=== PATIENT | male | born 1970 | race Caucasian/White ===

== ENCOUNTER 2018-02-09 16:35 | Outpatient (CLI) | payer OTHER ==
[2018-02-10 11:26] LABS: CALCIUM 9.5 mg/dL (8.5-10.3); CARBON DIOXIDE - CO2 27 mmol/L (21-32); CHLORIDE 91 mmol/L (101-111); GLUCOSE 113 mg/dL (70-100); SODIUM 129 mmol/L (135-145)
[2018-02-10 11:31] LABS: BILIRUBIN,URINE NEGATIVE (NEGATIVE); CLARITY,URINE CLEAR (CLEAR); GLUCOSE, URINE (UA) NEGATIVE (NEGATIVE); KETONES,URINE (UA) NEGATIVE (NEGATIVE); LEUKOCYTE ESTERASE, URINE NEGATIVE (NEGATIVE); NITRITE,URINE NEGATIVE (NEGATIVE); OCCULT BLOOD,URINE NEGATIVE (NEGATIVE); PROTEIN,URINE TRACE mg/dL (NEGATIVE); UROBILINOGEN,URINE 0.2 (NORMAL) E.U./dL (NORMAL)
[2018-02-10 11:43] LABS: BUN - BLOOD UREA NITROGEN 21 mg/dL (6-20); CHOL/HDL RATIO 5.3 (<5.0); CHOLESTEROL 201 mg/dL; CREATININE,URINE 137.9 mg/dL; GFR - MDRD 79 (>89); HDL CHOLESTEROL 38 mg/dL; LDL CHOLESTEROL,CALCULATED 141 mg/dL; LDL/HDL RATIO 3.7 (<3.6); MICROALBUM/CREATININE RATIO,UR 73.2 ug/mg (<30.0); MICROALBUMIN,URINE 10.1 mg/dL (0-300.0); VLDL CHOLESTEROL 22 mg/dL
[2018-02-10 11:49] LABS: HB2 TOTAL 16.7 g/dL; HEMOGLOBIN A1C 0.91 g/dL; HEMOGLOBIN A1C % 7.1 % (4.6-6.2)
== END 2018-02-09 16:36 | disposition home or self-care (01) ==
LOC: LAB.F 16:35
PROVIDERS: ATTEND Internal Medicine
DX: Z00.00 Encounter for general adult medical examination without abnormal findings (principal); R73.01 Impaired fasting glucose; F10.10 Alcohol abuse, uncomplicated; G47.30 Sleep apnea, unspecified; I10 Essential (primary) hypertension; Z13.6 Encounter for screening for cardiovascular disorders; R80.9 Proteinuria, unspecified
CPT/HCPCS: 36415; 80048; 80061; 81003; 82043; 82570; 83036; 83721

== ENCOUNTER 2018-03-09 14:49 | Outpatient (CLI) | payer OTHER | END 2018-03-09 14:50 | disposition home or self-care (01) | LOC: SC 14:49 | PROVIDERS: ATTEND Internal Medicine Pulmonary Disease | DX: R53.83 Other fatigue (principal); G47.8 Other sleep disorders; R06.83 Snoring | CPT/HCPCS: 99203; 99212 ==

== ENCOUNTER 2018-05-15 19:39 | Outpatient (CLI) | payer OTHER | END 2018-05-15 19:40 | disposition home or self-care (01) | LOC: SC 19:39 | PROVIDERS: ATTEND Internal Medicine Pulmonary Disease | DX: G47.33 Obstructive sleep apnea (adult) (pediatric) (principal); G47.61 Periodic limb movement disorder | CPT/HCPCS: 95810 ==

== ENCOUNTER 2018-06-01 08:35 | Outpatient (CLI) | payer OTHER | END 2018-06-01 08:36 | disposition home or self-care (01) | LOC: SC 08:35 | PROVIDERS: ATTEND Nurse Practitioner Family | DX: G47.33 Obstructive sleep apnea (adult) (pediatric) (principal); G47.61 Periodic limb movement disorder | CPT/HCPCS: 99212; 99214 ==

== ENCOUNTER 2018-07-12 16:09 | Outpatient (CLI) | payer OTHER | END 2018-07-12 16:10 | disposition home or self-care (01) | LOC: SC 16:09 | PROVIDERS: ATTEND Nurse Practitioner Family | DX: G47.33 Obstructive sleep apnea (adult) (pediatric) (principal); R03.0 Elevated blood-pressure reading, without diagnosis of hypertension | CPT/HCPCS: 99212; 99214 ==

== ENCOUNTER 2018-09-01 16:09 | Outpatient (CLI) | payer OTHER | END 2018-09-01 16:10 | disposition home or self-care (01) | LOC: SC 16:09 | PROVIDERS: ATTEND Nurse Practitioner Family | DX: G47.33 Obstructive sleep apnea (adult) (pediatric) (principal) | CPT/HCPCS: 99212; 99214 ==

== ENCOUNTER 2018-10-06 08:15 | Outpatient (CLI) | payer OTHER | END 2018-10-06 08:16 | disposition home or self-care (01) | LOC: SC 08:15 | PROVIDERS: ATTEND Nurse Practitioner Family | DX: G47.33 Obstructive sleep apnea (adult) (pediatric) (principal) | CPT/HCPCS: 99212; 99214 ==

== ENCOUNTER 2019-01-05 15:04 | Outpatient (CLI) | payer OTHER | END 2019-01-05 15:05 | disposition home or self-care (01) | LOC: SC 15:04 | PROVIDERS: ATTEND Nurse Practitioner Family | DX: G47.33 Obstructive sleep apnea (adult) (pediatric) (principal); R03.0 Elevated blood-pressure reading, without diagnosis of hypertension | CPT/HCPCS: 99212; 99214 ==

== ENCOUNTER 2019-08-09 15:02 | Outpatient (CLI) | payer OTHER ==
--- NOTE | 2019-08-09 15:33 | SLEEP CARE CONSULTATION ---
Information from patient questionnaire entered by Becky Calix. I have reviewed and concur with the information entered by Becky Calix. This document represents the service I personally performed and the decisions made by me, Tom Frazier MD, [facility]. History of Present Illness Previous diagnosis: Moderate, Obstructive Sleep Apnea-Hypopnea Syndrome AHI: 28.4 Reason for follow up: six month Equipment type: CPAP Equipment obtained from: [employer] Mask style: Nasal pillows Prior sleep studies: Yes HPI additional information: HPI: Mr. Altman returned today for follow up of nasal CPAP therapy. He was diagnosed to have moderate obstructive sleep apnea-hypopnea syndrome. The patient wears a Respironics DreamWear nasal pillows (he tried the nasal cushion but it slipped off). [employer] is his durable medical supplier. He reports using the device nightly and all through the night. The compliance report shows usage in 170 nights out of the past 180 nights, averaging 7.5 hours a night. The > 4 hour compliance rate for the past 180 days is 85%. He complained of no particular problem with the device such as soreness on the face, dry nose, epistaxis, nasal congestion or headache. He thinks that the pressure of 8 12 cmH2O is comfortable. On the CPAP therapy he notices improvement in his sleep quality, and that he wakes up feeling fresher in the morning and more awake/alert during the day. [place] Sleepiness Scale score is 2. His notices no snore at all. The average residual AHI is 0.5; and average time in large leak per day is 3.9. The 90th percentile pressure is 11.5 cmH2O. CPAP Compliance Data - Data Reviewed with Patient Average duration of nightly device use: 7h 7m Compliance rate %: 85 Current pressure setting (cmH2O): 8-12 Subjective Current pressure setting perceived as: comfortable Initial [place] Sleepiness Scale score: 2 Current [place] Sleepiness Scale score: 2 Allergies and Home Medications Drug allergies reviewed: Yes Home medication list reviewed: Yes (lisinopril, amlodipine, atorvastatin, Nasocort, and aspirin) Review of Systems Review of systems same as previous: Yes Physical Exam Height: 5 ft 9 in Weight: 241 lb Weight change since last visit: 0 Body Mass Index: 35.6 BMI Classification: Obese Impression and Plan IMPRESSION: 1. Obstructive Sleep Apnea-Hypopnea Syndrome, moderate, with the patient doing well on nasal CPAP therapy. He has excellent compliance and significant clinical improvement. The current pressure appears effective and comfortable. His mask fits well. Overall, he is very satisfied with treatment and plans to continue with it long-term. No adjustment is necessary today. PLAN: 1. Continue with autoCPAP set at 8 - 12 cmH2O. 2. Try to lose more weight 3. Try ResMed N30i mask and P30i nasal pillows. 4. Return in one year for follow up or earlier if there is any problem with the treatment. I spent 100% of this visit face to face with the patient with greater than 50% of this was spent time counseling the patient and coordination of care.
== END 2019-08-09 15:03 | disposition home or self-care (01) ==
LOC: SC 15:02
PROVIDERS: ATTEND Internal Medicine Pulmonary Disease
DX: G47.33 Obstructive sleep apnea (adult) (pediatric) (principal); E66.9 Obesity, unspecified; Z68.35 Body mass index [BMI] 35.0-35.9, adult
CPT/HCPCS: 99212; 99213

== ENCOUNTER 2023-08-09 20:19 | Emergency (ER) | payer OTHER ==
--- NOTE | 2023-08-09 20:50 | ED Physician Documentation ---
History of Present Illness - Stated complaint Stated Complaint: SOA,HIGH HR,ANXIETY - Chief complaint Chief Complaint: General - History obtained from History obtained from: Patient - History of Present Illness Timing: How many days ago (3) - Additonal information Additional information: 53-year-old Kaz Parish presents to the emergency department this evening with a 3-day history of PND and orthopnea as well as some anxiety and rapid heart rate. Kaz tells me that he has a prior history of diabetes but is not treated and hypertension that is again not treated. He tells me that he drinks heavily both whiskey and beer consuming up to 1/5 a day of whiskey plus beer and he works construction working hard every day. He states that over the past 2 to 3 months he has had increasing exertional dyspnea. He does use CPAP at night and he indicates that last night he had to sleep sitting upright in an easy chair.. He presents to the emergency department. This evening with the complaints that he was unable to sleep last night because he was unable to lay down without being short of breath. Review of Systems Constitutional: denies: Fever, Chills, Myalgias Eyes: denies: Decreased vision Ears: denies: Ear pain Nose: denies: Rhinorrhea / runny nose, Congestion Throat: reports: Oral lesions / sores (develops gelatinous blood around the gums at night.). denies: Sore throat Cardiac: reports: Pedal edema. denies: Chest pain / pressure, Palpitations Respiratory: reports: Dyspnea, Cough GI: denies: Abdominal Pain, Nausea, Vomiting, Constipation, Diarrhea : denies: Dysuria, Frequency Skin: denies: Rash Musculoskeletal: denies: Neck pain, Back pain, Extremity pain Neurologic: denies: Generalized weakness, Focal weakness, Numbness PD PAST MEDICAL HISTORY - Past Medical History Past Medical History: Yes Cardiovascular: Hypertension, High cholesterol - Past Surgical History Past Surgical History: No - Present Medications Home Medications: Ambulatory Orders Medication Instructions Recorded Confirmed chlordiazePOXIDE [Librium] 25 mg PO Q6H #15 cap 08/10/23 - Allergies Allergies/Adverse Reactions: Allergies Allergy/AdvReac Type Severity Reaction Status Date / Time No Known Drug Allergies Allergy Verified 08/09/23 20:23 - Social History Does the pt smoke?: No Smoking Status: Never smoker Does the pt drink ETOH?: No Does the pt have substance abuse?: No - Immunizations Immunizations are current?: No Immunizations: TDAP >10years/unknown - POLST Patient has POLST: No PD ED PE NORMAL - Vitals Vital signs reviewed: Yes (Tachycardic and hypertensive with wide pulse pressure) - General General: Alert and oriented X 3, No acute distress, Well developed/nourished - HEENT HEENT: Atraumatic, PERRL, EOMI - Neck Neck: Supple, no meningeal sign, No bony TTP - Cardiac Cardiac: No murmur, Other (Tachycardic) - Respiratory Respiratory: No respiratory distress, Other (Coarse breath sounds symmetrically throughout.) - Abdomen Abdomen: Soft, Non tender, Other (There are multiple small bruises to the lower abdomen these are explained by the patient is putting a piece of plywood up against his abdomen to push it up to the roof) - Back Back: No CVA TTP, No spinal TTP - Derm Derm: Normal color, No rash - Extremities Extremities: No deformity, Other (Pitting edema bilaterally 1+) - Neuro Neuro: Alert and oriented X 3, buffing wheel former automatic 2-12 intact, No motor deficit, No sensory deficit, Normal speech Eye Opening: Spontaneous Motor: Obeys Commands Verbal: Oriented GCS Score: 15 - Psych Psych: Normal mood, Normal affect Results - Vitals Vitals: Vital Signs - 24 hr 08/09/23 08/09/23 08/09/23 20:23 22:42 22:51 Temperature 36.6 C 36.9 C 36.9 C Heart Rate 118 H 105 H Heart Rate [ 105 H Monitoring electrodes] Respiratory 16 20 20 Rate Blood Pressure 180/65 H 159/64 H Blood Pressure 159/64 H [Left] O2 Saturation 100 96 94 08/09/23 08/09/23 08/10/23 23:06 23:30 00:00 Temperature 36.9 C Heart Rate 104 H 108 H Heart Rate [ 104 H Monitoring electrodes] Respiratory 16 16 17 Rate Blood Pressure 142/65 H 177/82 H Blood Pressure 164/66 H [Left] O2 Saturation 98 97 96 08/10/23 08/10/23 08/10/23 01:00 01:03 01:04 Temperature 37.1 C 37.1 C Heart Rate 100 Heart Rate [ 98 98 Monitoring electrodes] Respiratory 17 16 16 Rate Blood Pressure 144/75 H Blood Pressure 144/75 H 144/75 H [Left] O2 Saturation 96 99 08/10/23 08/10/23 08/10/23 01:24 01:39 02:00 Temperature 37.1 C 37 C Heart Rate 100 Heart Rate [ 100 99 Monitoring electrodes] Respiratory 17 15 16 Rate Blood Pressure 179/69 H Blood Pressure 150/77 H 152/74 H [Left] O2 Saturation 98 100 95 08/10/23 08/10/23 03:00 03:16 Temperature 37.1 C Heart Rate 100 Heart Rate [ 98 Monitoring electrodes] Respiratory 17 14 Rate Blood Pressure 155/74 H Blood Pressure 162/83 H [Left] O2 Saturation 95 97 Oxygen O2 Source Room air - EKG (time done) 2053 EKG releavant findings:: EKG personally interpreted by author of this note. Relevant findings are: Rate: Rate (enter#) (110) Rhythm: Sinus tachycardia Ischemia: Non specific changes (bordeline repolarization abnormality) Compare to prior EKG: Old EKG unavailable Computer interpretation: Agree with computer - Labs Labs: Laboratory Tests 08/09/23 08/09/23 08/09/23 21:02 21:02 21:02 WBC 6.7 RBC 2.37 L Hgb 6.0 L* Hct 19.9 L* MCV 84.0 MCH 25.3 L MCHC 30.2 L RDW 16.4 H Plt Count 88 L MPV 10.1 Neut # (Auto) 4.3 Lymph # (Auto) 1.8 Power # (Auto) 0.5 Eos # (Auto) 0.1 Baso # (Auto) 0.1 Absolute Nucleated RBC 0.00 Nucleated RBC % 0.0 Sodium 136 Potassium 3.6 Chloride 103 Carbon Dioxide 23 Anion Gap 10.0 BUN 11 Creatinine 0.7 Estimated GFR (MDRD) 117 Glucose 160 H Calcium 8.6 Total Bilirubin 1.4 H AST 138 H ALT 32 Alkaline Phosphatase 177 H Troponin I High Sens 10.8 B-Natriuretic Peptide 310 H Total Protein 6.9 Albumin 3.2 Globulin 3.7 Albumin/Globulin Ratio 0.9 L Lipase 288 H Urine Color Urine Clarity Urine pH Ur Specific [place] Urine Protein Urine Glucose (UA) Urine Ketones Urine Occult Blood Urine Nitrite Urine Bilirubin Urine Urobilinogen Ur Leukocyte Esterase Urine RBC Urine WBC Ur Squamous Epith Cells Urine Bacteria Ur Microscopic Review Urine Culture Comments Ethyl Alcohol 209.7 Blood Type Blood Type Recheck Antibody Screen Crossmatch IS Only 08/09/23 08/09/23 08/09/23 21:02 21:35 21:40 WBC RBC Hgb Hct MCV MCH MCHC RDW Plt Count MPV Neut # (Auto) Lymph # (Auto) Power # (Auto) Eos # (Auto) Baso # (Auto) Absolute Nucleated RBC Nucleated RBC % Sodium Potassium Chloride Carbon Dioxide Anion Gap BUN Creatinine Estimated GFR (MDRD) Glucose Calcium Total Bilirubin AST ALT Alkaline Phosphatase Troponin I High Sens B-Natriuretic Peptide Total Protein Albumin Globulin Albumin/Globulin Ratio Lipase Urine Color DARK YELLOW Urine Clarity CLEAR Urine pH 6.5 Ur Specific [place] 1.020 Urine Protein 30 H Urine Glucose (UA) 250 H Urine Ketones TRACE Urine Occult Blood NEGATIVE Urine Nitrite NEGATIVE Urine Bilirubin SMALL H Urine Urobilinogen >=8.0 H Ur Leukocyte Esterase NEGATIVE Urine RBC 0-5 Urine WBC 0-3 Ur Squamous Epith Cells RARE Squamous Urine Bacteria None Seen Ur Microscopic Review INDICATED Urine Culture Comments NOT INDICATED Ethyl Alcohol Blood Type B POSITIVE Blood Type Recheck B POSITIVE Antibody Screen NEGATIVE Crossmatch IS Only See Detail 08/10/23 04:20 WBC RBC Hgb 7.5 L Hct 23.5 L MCV MCH MCHC RDW Plt Count MPV Neut # (Auto) Lymph # (Auto) Power # (Auto) Eos # (Auto) Baso # (Auto) Absolute Nucleated RBC Nucleated RBC % Sodium Potassium Chloride Carbon Dioxide Anion Gap BUN Creatinine Estimated GFR (MDRD) Glucose Calcium Total Bilirubin AST ALT Alkaline Phosphatase Troponin I High Sens B-Natriuretic Peptide Total Protein Albumin Globulin Albumin/Globulin Ratio Lipase Urine Color Urine Clarity Urine pH Ur Specific [place] Urine Protein Urine Glucose (UA) Urine Ketones Urine Occult Blood Urine Nitrite Urine Bilirubin Urine Urobilinogen Ur Leukocyte Esterase Urine RBC Urine WBC Ur Squamous Epith Cells Urine Bacteria Ur Microscopic Review Urine Culture Comments Ethyl Alcohol Blood Type Blood Type Recheck Antibody Screen Crossmatch IS Only - Rads (name of study) chest Relevant Findings:: Prelim report reviewed (Impression: No acute cardiopulmonary process.), EMP independent interpretation of test Procedures - IVC sono (time) 2029 Bedside IVC sono: IVC measures (cm) (1.12), Dehydration (est 1 liter deficit) PD Medical Decision Making - ED course Complexity details: reviewed old records, reviewed results, re-evaluated patient, considered differential, d/w patient Reviewed Lab Results: We reviewed a complete blood count which showed a normal white blood cell count of 6.7 and a critically low hemoglobin of 6.0 and a critically low hematocrit of 19.9. We have a prior hemoglobin of 15 on the patient from 10 years ago. Platelet count is also depressed at 88,000. Chemistries show normal electrolytes normal kidney function glucose is elevated at 160 total bilirubin elevated at 1.4 AST elevated at 138 and alkaline phosphatase elevated at 177. A BNP is elevated at 310 and lipase elevated at 288. The patient's blood alcohol is 209.7. I interpreted this set of laboratory test to indicate the patient has significant issues with alcohol including changes in liver function and blood counts. His blood counts are now critically low and I suspect the symptoms the patient is presenting with are related to his low blood counts. I believe the low blood counts are related to the direct effects of alcohol on the patient's bone marrow. ED course: Kaz Altman presents to the emergency department after a 3-year lapse of not seeing his physician. He had previously been treated for hypertension and diabetes. Today he has critically low blood counts and a transfusion is performed. He received 2 units of packed red blood cells. He feels much improved. I suspect most of Mr. Parish's problems are related to his excessive consumption of alcohol and he relates that he has been drinking since he was 6 years old has had lots of experience with having to go through withdrawal.When I asked him more specifics about this it appears he has not been treated previously with Librium or other medications for withdrawal and he has suffered through this. He did not detail any long periods of sobriety. He has not been in treatment previously. 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 These low blood counts appear to be related to the direct effects of alcohol on your bone marrow. The recommendation is to discontinue the use of alcohol entirely and I have provided some librium to help you get through the withdrawal. A follow-up with a primary care doctor is imperative and I have given you the name of Dr. Jansen in [place]. Forms: Activity restrictions
[2023-08-09 21:13] LABS: BASOPHILS # (AUTO) 0.1 10^3/uL (0.0-0.1); BASOPHILS % (AUTO) 1.2 %; EOSINOPHILS # (AUTO) 0.1 10^3/uL (0.0-0.7); EOSINOPHILS % (AUTO) 0.7 %; LYMPHOCYTES # (AUTO) 1.8 10^3/uL (1.5-3.5); LYMPHOCYTES % (AUTO) 26.2 %; MEAN CORPUSCULAR HEMOGLOBIN 25.3 pg (27.0-31.0); MEAN CORPUSCULAR HGB CONC 30.2 g/dL (32.0-36.0); MEAN PLATELET VOLUME 10.1 fL (7.4-11.4); MONOCYTES # (AUTO) 0.5 10^3/uL (0.0-1.0); MONOCYTES % (AUTO) 7.3 %; NEUTROPHILS # (AUTO) 4.3 10^3/uL (1.5-6.6); NEUTROPHILS % (AUTO) 64.2 %; PLT - PLATELET COUNT 88 10^3/uL (130-450); RED BLOOD COUNT 2.37 10^6/uL (4.70-6.10); RED CELL DISTRIBUTION WIDTH 16.4 % (12.0-15.0); WHITE BLOOD COUNT 6.7 x10^3/uL (4.8-10.8)
[2023-08-09 21:17] LABS: HCT - HEMATOCRIT 19.9 % (42.0-52.0)
[2023-08-09 21:28] LABS: ALBUMIN 3.2 g/dL (3.2-5.5); ALBUMIN/GLOBULIN RATIO 0.9 (1.0-2.2); BILIRUBIN,TOTAL 1.4 mg/dL (0.2-1.0); CALCIUM 8.6 mg/dL (8.5-10.3); CREATININE 0.7 mg/dL (0.6-1.3); ETOH - ETHANOL 209.7 mg/dL; POTASSIUM 3.6 mmol/L (3.5-4.5); TOTAL PROTEIN 6.9 g/dL (6.4-8.9)
[2023-08-09 21:30] LABS: TROPONIN I HIGH SENSITIVITY 10.8 ng/L (2.3-19.7)
--- NOTE | 2023-08-09 21:41 | XRAY Report ---
PROCEDURE: Chest 1V INDICATIONS: soa TECHNIQUE: One view of the chest was acquired. COMPARISON: None. FINDINGS: Surgical changes and devices: None. Lungs and pleura: No pleural effusions or pneumothorax. Lungs are clear. Mediastinum: Mediastinal contours appear normal. Heart size is normal. Bones and chest wall: No suspicious bony lesions. Overlying soft tissues appear unremarkable. IMPRESSION: No acute cardiopulmonary process. Reviewed by: David Santos MD on 08/09/2023 9:40 PM PST Approved by: David Santos MD on 08/09/2023 9:40 PM [facility] Station ID: [id number]
[2023-08-09 21:56] LABS: BILIRUBIN,URINE SMALL (NEGATIVE); GLUCOSE, URINE (UA) 250 mg/dL (NEGATIVE); KETONES,URINE (UA) TRACE mg/dL (NEGATIVE); LEUKOCYTE ESTERASE, URINE NEGATIVE (NEGATIVE); NITRITE,URINE NEGATIVE (NEGATIVE); OCCULT BLOOD,URINE NEGATIVE (NEGATIVE); PH,URINE 6.5 PH (5.0-7.5); PROTEIN,URINE 30 mg/dL (NEGATIVE); UROBILINOGEN,URINE >=8.0 E.U./dL (NORMAL)
[2023-08-09 21:57] LABS: CLARITY,URINE CLEAR (CLEAR)
[2023-08-09 22:09] LABS: BACTERIA,URINE None Seen /HPF (None Seen); RBC,URINE 0-5 /HPF (0-5); SQUAMOUS EPITHELIAL CELL,UR RARE Squamous (<= Few); WBC,URINE 0-3 /HPF (0-3)
[2023-08-10 04:26] LABS: HCT - HEMATOCRIT 23.5 % (42.0-52.0); HGB - HEMOGLOBIN 7.5 g/dL (14.0-18.0)
[2023-08-10 05:19] VITALS: BP 156/86; O2SAT 94
== END 2023-08-10 05:16 | disposition home or self-care (01) ==
LOC: ED 20:19
DX: D64.89 Other specified anemias (principal); F10.20 Alcohol dependence, uncomplicated; Y90.7 Blood alcohol level of 200-239 mg/100 ml; E86.0 Dehydration
CPT/HCPCS: 36415; 36430; 71045; 80053; 81001; 82077; 83690; 83880; 84484; 85014; 85018; 85025; 86850; 86900; 86901; 86920; 93005; 99285; P9016; 81003; 87086

== ENCOUNTER 2023-08-18 16:15 | Emergency (ER) | payer OTHER ==
[2023-08-18 17:28] VITALS: BP 148/62; O2SAT 100
[2023-08-18 17:54] LABS: BASOPHILS # (AUTO) 0.1 10^3/uL (0.0-0.1); EOSINOPHILS # (AUTO) 0.2 10^3/uL (0.0-0.7); EOSINOPHILS % (AUTO) 3.3 %; HCT - HEMATOCRIT 28.3 % (42.0-52.0); HGB - HEMOGLOBIN 8.5 g/dL (14.0-18.0); LYMPHOCYTES # (AUTO) 1.2 10^3/uL (1.5-3.5); LYMPHOCYTES % (AUTO) 27.3 %; MAGNESIUM 1.7 mg/dL (1.7-2.3); MEAN CORPUSCULAR HEMOGLOBIN 25.7 pg (27.0-31.0); MEAN CORPUSCULAR VOLUME 85.5 fL (80.0-94.0); MEAN PLATELET VOLUME 10.3 fL (7.4-11.4); MONOCYTES # (AUTO) 0.4 10^3/uL (0.0-1.0); MONOCYTES % (AUTO) 9.3 %; NEUTROPHILS # (AUTO) 2.6 10^3/uL (1.5-6.6); NEUTROPHILS % (AUTO) 57.9 %; PLT - PLATELET COUNT 172 10^3/uL (130-450); RED BLOOD COUNT 3.31 10^6/uL (4.70-6.10); RED CELL DISTRIBUTION WIDTH 16.2 % (12.0-15.0); WHITE BLOOD COUNT 4.5 x10^3/uL (4.8-10.8)
[2023-08-18 18:00] LABS: ALBUMIN 3.3 g/dL (3.2-5.5); ALBUMIN/GLOBULIN RATIO 0.8 (1.0-2.2); BILIRUBIN,TOTAL 1.5 mg/dL (0.2-1.0); CALCIUM 9.3 mg/dL (8.5-10.3); CREATININE 0.6 mg/dL (0.6-1.3); POTASSIUM 3.9 mmol/L (3.5-4.5); TOTAL PROTEIN 7.4 g/dL (6.4-8.9)
--- NOTE | 2023-08-18 20:44 | ED Physician Documentation ---
History of Present Illness - Stated complaint Stated Complaint: LOW HEMOGLOBIN/SENT BY [facility] - Chief complaint Chief Complaint: General - History obtained from History obtained from: Patient - Additonal information Additional information: 53-year-old gentleman saw my partner 10 days ago for shortness of breath and was found to be anemic with a hemoglobin of 6. At that time was identified as having pretty significant alcohol abuse. He was transfused and is generally doing better but was referred here for positive BNP from the walk-in clinic. He is no longer short of breath. He is fatigued. Denies dark or tarry stools. No bloody emesis. PD PAST MEDICAL HISTORY - Past Medical History Past Medical History: Yes Cardiovascular: Hypertension, High cholesterol Respiratory: None Neuro: None Endocrine/Autoimmune: None GI: None : None HEENT: None Psych: None Derm: None - Past Surgical History Past Surgical History: No - Present Medications Home Medications: Ambulatory Orders Medication Instructions Recorded Confirmed chlordiazePOXIDE [Librium] 25 mg PO Q6H #15 cap 08/10/23 08/18/23 Ferrous Sulfate [Feosol] 325 mg PO DAILY #30 tablet 08/18/23 - Allergies Allergies/Adverse Reactions: Allergies Allergy/AdvReac Type Severity Reaction Status Date / Time No Known Drug Allergies Allergy Verified 08/18/23 17:16 - Social History Does the pt smoke?: No Smoking Status: Never smoker Does the pt drink ETOH?: No Does the pt have substance abuse?: No - Immunizations Immunizations are current?: No Immunizations: TDAP >10years/unknown - POLST Patient has POLST: No PD ED PE NORMAL - Vitals Vital signs reviewed: Yes - General General: Alert and oriented X 3, No acute distress - Neck Neck: Supple, no meningeal sign - Cardiac Cardiac: RRR, No murmur - Respiratory Respiratory: No respiratory distress, Clear bilaterally - Abdomen Abdomen: Non tender - Back Back: No CVA TTP, No spinal TTP - Extremities Extremities: Other (1+ edema bilat) - Neuro Neuro: Alert and oriented X 3, Normal speech Results - Vitals Vitals: Vital Signs - 24 hr 08/18/23 08/18/23 17:16 17:24 Temperature 36.6 C 36.6 C Heart Rate 84 84 Respiratory 18 18 Rate Blood Pressure 148/62 H 148/62 H O2 Saturation 100 100 Oxygen O2 Source Room air - Labs Labs: Laboratory Tests 08/18/23 08/18/23 08/18/23 17:36 17:36 17:36 WBC 4.5 L RBC 3.31 L Hgb 8.5 L Hct 28.3 L MCV 85.5 MCH 25.7 L MCHC 30.0 L RDW 16.2 H Plt Count 172 MPV 10.3 Neut # (Auto) 2.6 Lymph # (Auto) 1.2 L [place] # (Auto) 0.4 Eos # (Auto) 0.2 Baso # (Auto) 0.1 Absolute Nucleated RBC 0.00 Nucleated RBC % 0.0 Sodium 137 Potassium 3.9 Chloride 106 Carbon Dioxide 25 Anion Gap 6.0 BUN 12 Creatinine 0.6 Estimated GFR (MDRD) 140 Glucose 161 H Calcium 9.3 Magnesium 1.7 Total Bilirubin 1.5 H AST 82 H ALT 24 Alkaline Phosphatase 116 Total Protein 7.4 Albumin 3.3 Globulin 4.1 Albumin/Globulin Ratio 0.8 L Blood Type B POSITIVE Antibody Screen NEGATIVE PD Medical Decision Making - ED course ED course: Prior workup reviewed, his hemoglobin is going up, his chest x-ray was clear, there is really no clinical sign of fluid overload save mild pitting pedal edema of just the ankles. His platelets are going up, really he just needs more outpatient workup to workup heart failure which it may just be from the prior anemia but again everything else looks better. Departure - Departure Disposition: 01 Home, Self Care Clinical Impression: Dyspnea Qualifiers: Dyspnea type: dyspnea on exertion Qualified Code(s): R06.09 - Other forms of dyspnea Condition: Good Record reviewed to determine appropriate education?: Yes Instructions: ED Dyspnea Shortness of Breath Prescriptions: Ferrous Sulfate [Feosol] 325 mg PO DAILY #30 tablet Comments: As discussed, everything is actually looking better from our perspective, your hemoglobin is up to 8.5, your platelet count is up to 172. It seems that you are doing much better now that you are not drinking. Given the anemia, orthopnea and prior workup with notice of modestly elevated BNP on outpatient labs I would recommend the following when you talk to MARTI Guzman tomorrow. 1. Probably do need an echocardiogram 2. Given the unexplained anemia would be reasonable to have referrals for both upper and lower endoscopy noting that you are overdue for lower endoscopy anyway 3. Reasonable to start an iron supplement and I am writing a prescription 4. Reasonable to consider hematology consultation as an outpatient. Return if worse. Forms: PCP List Discharge Date/Time: 08/18/23 20:50
== END 2023-08-18 20:50 | disposition home or self-care (01) ==
LOC: ED 16:15
DX: R06.09 Other forms of dyspnea (principal); I10 Essential (primary) hypertension; E78.00 Pure hypercholesterolemia, unspecified
CPT/HCPCS: 36415; 80053; 83735; 85025; 86850; 86900; 86901; 99283

== ENCOUNTER 2023-08-25 08:15 | Outpatient (CLI) | payer OTHER ==
[2023-08-25 15:13] LABS: INR 1.4 (0.8-1.2); PT - PROTHROMBIN TIME 15.7 secs (9.9-12.6)
[2023-08-25 15:24] LABS: BASOPHILS # (AUTO) 0.1 10^3/uL (0.0-0.1); BASOPHILS % (AUTO) 2.6 %; EOSINOPHILS # (AUTO) 0.2 10^3/uL (0.0-0.7); EOSINOPHILS % (AUTO) 3.4 %; HCT - HEMATOCRIT 28.7 % (42.0-52.0); HGB - HEMOGLOBIN 8.7 g/dL (14.0-18.0); LYMPHOCYTES # (AUTO) 1.3 10^3/uL (1.5-3.5); LYMPHOCYTES % (AUTO) 27.8 %; MEAN CORPUSCULAR HEMOGLOBIN 25.7 pg (27.0-31.0); MEAN CORPUSCULAR HGB CONC 30.3 g/dL (32.0-36.0); MEAN CORPUSCULAR VOLUME 84.7 fL (80.0-94.0); MEAN PLATELET VOLUME 11.6 fL (7.4-11.4); MONOCYTES # (AUTO) 0.4 10^3/uL (0.0-1.0); MONOCYTES % (AUTO) 8.3 %; NEUTROPHILS # (AUTO) 2.7 10^3/uL (1.5-6.6); NEUTROPHILS % (AUTO) 57.7 %; PLT - PLATELET COUNT 188 10^3/uL (130-450); RED BLOOD COUNT 3.39 10^6/uL (4.70-6.10); RED CELL DISTRIBUTION WIDTH 16.8 % (12.0-15.0); WHITE BLOOD COUNT 4.7 x10^3/uL (4.8-10.8)
[2023-08-25 16:59] LABS: ALBUMIN 3.3 g/dL (3.2-5.5); ALBUMIN/GLOBULIN RATIO 0.8 (1.0-2.2); BILIRUBIN,TOTAL 1.3 mg/dL (0.2-1.0); CALCIUM 9.3 mg/dL (8.5-10.3); CREATININE 0.6 mg/dL (0.6-1.3); POTASSIUM 4.2 mmol/L (3.5-4.5); TOTAL PROTEIN 7.3 g/dL (6.4-8.9)
== END 2023-08-25 08:16 | disposition home or self-care (01) ==
LOC: LAB.S 08:15
PROVIDERS: ATTEND Physician Assistant Medical
DX: D64.9 Anemia, unspecified (principal); R06.02 Shortness of breath
CPT/HCPCS: 36415; 80053; 83880; 85025; 85610

== ENCOUNTER 2023-08-26 10:13 | Outpatient (CLI) | payer OTHER | END 2023-08-26 10:14 | disposition home or self-care (01) | LOC: DI 10:13 | PROVIDERS: ATTEND Physician Assistant Medical | DX: R06.02 Shortness of breath (principal); I51.7 Cardiomegaly | CPT/HCPCS: 93307 ==

== ENCOUNTER 2023-08-29 06:55 | Outpatient (CLI) | payer OTHER ==
--- NOTE | 2023-08-29 08:44 | Ultrasound Report ---
PROCEDURE: Abdomen Limited INDICATIONS: HIST OF ALCOHOL ABUSE TECHNIQUE: Real-time focused scanning was performed of the abdomen, with image documentation. COMPARISONS: None. FINDINGS: Liver: Heterogeneous liver parenchyma with increased echogenicity. Surface nodularity. Findings sugg est possible cirrhotic change. Gallbladder: Unremarkable. Biliary ducts: Intrahepatic bile ducts are non-dilated. Extrahepatic bile duct caliber measures 3 m m. Normal is 6-7 mm or less in diameter, or 10 mm or less post-cholecystectomy. Pancreas: Visualized portions of the pancreas are sonographically normal. Right kidney: Normal in size and echotexture. Right kidney measures 12.3 cm long. No hydronephrosis or nephrolithiasis. No solid masses. No complex renal cystic lesions which require follow-up. IVC: Intrahepatic inferior vena cava is patent. Miscellaneous: No free abdominal fluid. IMPRESSION: 1. Findings suggest cirrhotic change in the liver. No focal liver mass. 2. No gallstone disease. Reviewed by: Kin Raymond MD on 08/29/2023 8:43 AM PDT Approved by: Kin Raymond MD on 08/29/2023 8:43 AM PDT Station ID: [id number]
== END 2023-08-29 06:56 | disposition home or self-care (01) ==
LOC: DI 06:55
PROVIDERS: ATTEND Physician Assistant Medical
DX: Z86.59 Personal history of other mental and behavioral disorders (principal); D64.9 Anemia, unspecified; G47.00 Insomnia, unspecified

== ENCOUNTER 2023-09-08 09:12 | Outpatient (CLI) | payer OTHER ==
[2023-09-08 14:58] LABS: BASOPHILS # (AUTO) 0.1 10^3/uL (0.0-0.1); BASOPHILS % (AUTO) 1.7 %; EOSINOPHILS # (AUTO) 0.1 10^3/uL (0.0-0.7); EOSINOPHILS % (AUTO) 3.1 %; HCT - HEMATOCRIT 34.2 % (42.0-52.0); HGB - HEMOGLOBIN 10.5 g/dL (14.0-18.0); LYMPHOCYTES # (AUTO) 1.6 10^3/uL (1.5-3.5); LYMPHOCYTES % (AUTO) 37.7 %; MEAN CORPUSCULAR HEMOGLOBIN 25.6 pg (27.0-31.0); MEAN CORPUSCULAR HGB CONC 30.7 g/dL (32.0-36.0); MEAN CORPUSCULAR VOLUME 83.4 fL (80.0-94.0); MEAN PLATELET VOLUME 11.4 fL (7.4-11.4); MONOCYTES # (AUTO) 0.3 10^3/uL (0.0-1.0); MONOCYTES % (AUTO) 7.8 %; NEUTROPHILS # (AUTO) 2.1 10^3/uL (1.5-6.6); NEUTROPHILS % (AUTO) 49.5 %; PLT - PLATELET COUNT 117 10^3/uL (130-450); RED CELL DISTRIBUTION WIDTH 18.4 % (12.0-15.0); WHITE BLOOD COUNT 4.2 x10^3/uL (4.8-10.8)
[2023-09-08 15:29] LABS: INR 1.3 (0.8-1.2); PT - PROTHROMBIN TIME 14.3 secs (9.9-12.6)
[2023-09-08 15:49] LABS: ALBUMIN 3.6 g/dL (3.2-5.5); ALBUMIN/GLOBULIN RATIO 0.9 (1.0-2.2); BILIRUBIN,TOTAL 1.2 mg/dL (0.2-1.0); CALCIUM 10.2 mg/dL (8.5-10.3); CREATININE 0.7 mg/dL (0.6-1.3); POTASSIUM 4.2 mmol/L (3.5-4.5); TOTAL PROTEIN 7.6 g/dL (6.4-8.9)
== END 2023-09-08 09:13 | disposition home or self-care (01) ==
LOC: LAB.S 09:12
PROVIDERS: ATTEND Physician Assistant Medical
DX: D64.9 Anemia, unspecified (principal); R06.02 Shortness of breath
CPT/HCPCS: 36415; 80053; 83880; 85025; 85610

== ENCOUNTER 2023-11-05 12:54 | Day surgery (SDC) | payer OTHER ==
--- NOTE | 2023-11-05 06:55 | HISTORY & PHYSICAL EXAMINATION ---
PMH/PSH - Past Medical History Cardiovascular: positive: Hypertension Respiratory: positive: CPAP use Neuro: positive: None Endocrine/Autoimmune: positive: None GI: positive: None : positive: None HEENT: positive: None Psych: positive: None Musculoskeletal: positive: None Derm: positive: None MRSA Hx?: Yes Social & Family Hx - Social History Does the pt smoke?: No Smoking Status: Never smoker Does the pt drink ETOH?: No Does the pt have substance abuse?: No Substance Use and Type: Marijuana - POLST Patient has POLST: No Meds/Allgy - Home Medications Home Medications: Ambulatory Orders Medication Instructions Recorded Confirmed Ferrous Sulfate [Feosol] 325 mg PO DAILY #30 tablet 08/18/23 11/04/23 Lisinopril [Zestril] 20 mg PO DAILY 09/04/23 11/04/23 - Allergies Allergies/Adverse Reactions: Allergies Allergy/AdvReac Type Severity Reaction Status Date / Time No Known Drug Allergies Allergy Verified 11/04/23 12:55 Impression/Plan - Problem List Problem List: Primary Provider: Heather Arriaga History of Present Illness: I am asked to see Kaz for EGD and CS examination to evaluate chronic blood loss anemia and for colon cancer screening. He has been a heavy drinker for years but stopped after his August 2023 ED visit for SOB due to anemia. He received 2 units of PRBC and was started on iron supplementation. Since then he has stopped drinking and has lost about 20 pounds. He denies GERD or PUD s ymptoms. He denies constipation, hematochezia. he does have a history of semi- annual epistaxis but none recently. His family history is remarkable for esophageal cancer secondary to chronic GERD in his mother. Mallampati Score Class I: The soft palate, tonsils, anterior and posterior pillars, and the entire uvula are easily visible ASA Physical Status Classification System ASA II: A patient with mild systemic disease Allergies: Allergies Reviewed: Done No Known Allergies Social History Reviewed: Done Medications: Meds Reviewed: Done Iron (ferrous sulfate) 325 mg (65 mg iron) tablet (ferrous sulfate) 1 tablet by mouth three times a week take Thu, Thu and Fridays. lisinopril 20 mg tablet (lisinopril) Take 1 tablet by mouth once a day Problems: Problems Reviewed: Done Obstructive sleep apnea, adult (ICD-327.23) (ZAJ59-X53.33) Hx of alcohol abuse (ICD-V11.3) (GZQ45-N26.59) Anemia (ICD-285.9) (TMD57-C73.9) Bronchitis (ICD-490) (AJZ39-R17) Insomnia (ICD-780.52) (DYG30-I37.00) Shortness of breath (ICD-786.05) (QNN02-K14.02) Preventive health care, adult (ICD-V70.0) (NJV65-I19.00) Screening for diabetes mellitus (ICD-V77.1) (YEP50-A30.1) Screening for lipid disorder (ICD-V77.91) (WYT48-C97.220) Screening for colon cancer (ICD-V76.51) (RVB53-Q28.11) Anemia (ICD-285.9) (XSQ96-G07.9) Alcohol abuse, continuous drinking behavior (ICD-305.01) (WKA09-O88.10) Hypertension, benign essential (ICD-401.1) (SGG44-S42) Occupational health and safety exam (ICD-V70.5) (WYA45-H70.89) Past Medical History: Hypertension. Diabetes. Alcoholism. Risk Factors-CCC: Smoked Tobacco Use: Never smoker Smokeless Tobacco Use: Never Passive Smoke Exposure: no Alcohol Use: yes Drinks per day: 2 Drug Use: no Marijuana Use: no Review of Systems General Denies fever, anorexia and weight loss. GI Denies abdominal pain, nausea, vomiting, diarrhea, constipation, change in bowel habits, melena, hematochezia, jaundice, gas/bloating, indigestion/heartburn, dysphagia and odynophagia. Breast Denies left breast lump, right breast lump, nipple discharge, bloody discharge from nipple, breast pain, abnormal mammogram and breast enlargement. CV Denies chest pains, palpitations, syncope and peripheral edema. Resp Denies cough, shortness of breath, hemoptysis, wheezing and pleuritic chest pain. Vascular Denies varicose veins, leg swelling, leg redness, leg coolness, pain in legs with walking, resting leg pain, pain at night in legs and blue toe(s). Denies dysuria, hematuria, discharge, urinary frequency, urinary hesitancy, nocturia, incontinence and erectile dysfunction. Wound Denies wound redness, wound discharge, wound pain, opening of wound, purulent discharge and bleeding from wound. Derm Denies suspicious lesions, new skin lesions, changing mole(s), rash, itching and history of skin cancer. Neuro Denies paralysis, paresthesias, seizures and frequent headaches. Psych Denies depression, anxiety, memory loss, suicidal ideation, hallucinations, paranoia, phobia and confusion. Endo Denies cold intolerance, heat intolerance, polydipsia, polyphagia, polyuria and unusual weight change. Heme Denies abnormal bruising, bleeding and enlarged lymph nodes. MS Denies back pain, sciatica and arthritis. Other Denies stoma redness, pain around stoma, discharge from stoma, pain from venous catheter, redness at vascular access site and purulent drainage from vascular access site. Vital Signs: Patient Profile: 53 Years Old Male Height: 68.75 inches Weight: 205 pounds BMI: 30.60 Temp: 97.7 degrees F oral Pulse rate: 78 / minute Resp: 20 per minute BP sittin / 77 Pt. in pain? no Vitals Entered By: Candace De Santiago RN (September 28, 2023 8:35 AM) Problems were reviewed with the patient during this visit. Medications were reviewed with the patient during this visit. Allergies were reviewed with the patient during this visit. No known allergies. Physical Exam General: well developed, well nourished, in no acute distress Head: normocephalic and atraumatic Eyes: PERRLA/EOM intact;conjunctiva and sclera clear Ears: Normal hearing Nose: no deformity, discharge, inflammation, or lesions Mouth: no deformity or lesions with good dentition Neck: no masses, thyromegaly, or abnormal cervical nodes Chest Wall: no deformities or breast masses noted Lungs: clear bilaterally to A & P Heart: regular rate and rhythm, S1, S2 without murmurs, rubs, gallops, or clicks Abdomen: Irreducible, non-tender umbilical hernia that likely contains fat. Normal BS; No distension or tenderness Msk: no deformity or scoliosis noted with normal posture and gait Pulses: pulses normal in all 4 extremities Extremities: no clubbing, cyanosis, edema, or deformity noted with normal full range of motion of all joints Neurologic: no focal deficits, normal muscle strength and tone Skin: intact without lesions or rashes Cervical Nodes: no significant adenopathy Axillary Nodes: no significant adenopathy Inguinal Nodes: no significant adenopathy Psych: alert and cooperative; normal mood and affect; normal attention span and concentration Labs: 09/08/2023: H&H n10.5/34.2; Plt 117k; INR 1.3; BMP WNL Impression & Recommendations: Assessment: 1) Chronic blood loss anemia 2) Screening colon exam requested Plan: EGD and CS under monitored sedation Consent: Kaz has been counseled for the procedure (EGD,CS), it's indications, risks, benefits and expected outcome as well as alternative therapies. We specifically discussed risks associated with anesthesia and insertion of the lower endoscope into the large intestine which includes bleeding and injury to the colon which may require surgical intervention. We also discussed risks associated insertion of the upper endoscope into the UGI tract which includes bleeding and/or injury to the esophagus which may require surgical intervention. Kaz understands, agrees, and consents to the proposed operative strategy and requests that we proceed with the procedure as outlined in our discussion. Akbar Marmolejo MD, [facility] General Surgery Service Date: 11/05/2023; 14:30 Chart Update: Patient examined, chart reviewed. There are no changes to the patient's clinical status that would preclude proceeding with the scheduled procedure today. Akbar Marmolejo MD, [facility] General Surgery Service
[2023-11-05] MEDS: LACTATED RINGERS 1,000 ML IV ONE ×2 (12:57→16:05)
--- NOTE | 2023-11-05 14:00 | ANESTHESIA ---
Pre-Anesthesia VS, & Labs - Diagnosis screening, anemia - Procedure EGD, colonoscopy Vital Signs: Temp Pulse Resp BP Pulse Ox O2 Flow Rate 37.4 C 78 12 135/77 H 96 11/05/23 13:03 11/05/23 13:03 11/05/23 13:03 11/05/23 13:03 11/05/23 13:03 Height: 5 ft 9 in Weight (kg): 88.4 kg Body Mass Index: 28.8 BMI Classification: Overweight - NPO >8 hours Home Medications and Allergies Lisinopril [Zestril] 20 mg PO DAILY 09/04/23 Allergies/Adverse Reactions: Allergies Allergy/AdvReac Type Severity Reaction Status Date / Time No Known Drug Allergies Allergy Verified 11/04/23 12:55 Anes History & Medical History - Anesthetic History Anesthesia Complications: reports: No previous complications (hx of heavy ETOH abuse, recently quit) Family history of Anesthesia Complications: Denies Family history of Malignant Hyperthermia: Denies - Medical History Cardiovascular: reports: Hypertension Pulmonary: reports: CPAP use Gastrointestinal: reports: Cirrhosis Urinary: reports: None Neuro: reports: None Musculoskeletal: reports: None Endocrine/Autoimmune: reports: None Blood Disorders: reports: None Skin: reports: None Smoking Status: Never smoker Psychosocial: reports: Alcohol, Cannabis History of Cancer?: No Exam General: Alert, Oriented x3, Cooperative Dental: WNL Mouth Openin Fingerbreadth Neck Mobility: Normal Mallampati classification: I Thyromental Distance: 4-6 cm Respiratory: Lungs clear Cardiovascular: Regular rate Plan Anesthesia Type: General, Total IV Consent for Procedure(s) Verified and Reviewed: Yes Code Status: Attempt Resuscitation ASA classification: 2-Mild systemic disease Is this case an emergency?: No
[2023-11-05] MEDS ORDERED: PROPOFOL 500 MG/50 ML 500 MG/50 ML VIAL ONE ×2 (15:15→15:42)
[2023-11-05] MEDS ORDERED: MIDAZOLAM 2 MG/2 ML VIAL ONE (15:17)
[2023-11-05] MEDS ORDERED: LIDOCAINE-MPF 2% 5 ML VIAL ONE (15:19)
[2023-11-05] MEDS ORDERED: KETAMINE 200 MG/20 ML VIAL ONE (15:49)
[2023-11-05] MEDS: SIMETHICONE *(INFANT SUSP)* 40 MG/0.6 ML BOTTLE PO ONE (15:52)
[2023-11-05 16:30] VITALS: BP 134/76; O2SAT 98
--- NOTE | 2023-11-05 17:07 | ANESTHESIA POST OP EVALUATION ---
Anesthesia Post Eval - Post Anesthesia Eval Vitals: Last Vital Signs Temp 36.8 C 11/05/23 16:05 Pulse 73 11/05/23 16:23 Resp 12 11/05/23 16:23 BP 134/76 H 11/05/23 16:23 Pulse Ox 98 11/05/23 16:23 O2 Flow Rate CV Function Including HR & BP: Stable Pain Control: Satisfactory Nausea & Vomiting: Negative Mental Status: Baseline Respiratory Status: Airway Patent Hydration Status: Satisfactory Anesthesia Complications: None
== END 2023-11-05 12:55 | disposition home or self-care (01) ==
LOC: SDS 12:54
PROVIDERS: ATTEND Surgery
PROC: 0DB48ZX Excision of Esophagogastric Junction, Via Natural or Artificial Opening Endoscopic, Diagnostic (ICD-10-PCS; principal; 2023-11-05 13:45)
PROC: 0DBM8ZX Excision of Descending Colon, Via Natural or Artificial Opening Endoscopic, Diagnostic (ICD-10-PCS; 2023-11-05 13:45)
DX: Z12.11 Encounter for screening for malignant neoplasm of colon (principal); K29.90 Gastroduodenitis, unspecified, without bleeding; K57.30 Diverticulosis of large intestine without perforation or abscess without bleeding; K64.9 Unspecified hemorrhoids; K22.70 Barrett's esophagus without dysplasia; D50.0 Iron deficiency anemia secondary to blood loss (chronic); G47.33 Obstructive sleep apnea (adult) (pediatric); I10 Essential (primary) hypertension; D12.4 Benign neoplasm of descending colon
CPT/HCPCS: 43239; 45385; A9270; J3490; J7120

== ENCOUNTER 2024-02-22 08:00 | Outpatient (CLI) | payer OTHER ==
--- NOTE | 2024-02-23 16:31 | XRAY Report ---
PROCEDURE: Lumbar Spine 2-3V INDICATIONS: LUMBAR BACK PAIN TECHNIQUE: 3 views of the lumbar spine were acquired. COMPARISON: None. FINDINGS: Surgical change: None. Bones: 5 [id number] vertebrae are present. Grade 1 anterolisthesis of L4 on L5 of approximately 4 mm. Moderate to severe degenerative changes at L5-S1 with osteophytosis, disc height loss and face t arthropathy resulting in osseous neural foraminal narrowing. Remainder of the spine demonstrate mil [id number] multilevel degenerative changes. No vertebral body compression fractures. No suspiciou s bony lesions. Soft tissues: Overlying bowel gas pattern is normal. No suspicious soft tissue calcifications. Calc ification of the abdominal aorta. IMPRESSION: 1.No acute fracture or traumatic subluxation. 2.Multilevel degenerative changes of the spine which are moderate to severe at L5-S1. Reviewed by: Augustine Velazquez MD on 02/23/2024 4:30 PM PDT Approved by: Augustine Velazquez MD on 02/23/2024 4:30 PM PDT Station ID: [id number]
== END 2024-02-22 23:59 | disposition home or self-care (01) ==
LOC: DI.S 08:00
PROVIDERS: ATTEND Registered Nurse
DX: M47.816 Spondylosis without myelopathy or radiculopathy, lumbar region (principal); M47.817 Spondylosis without myelopathy or radiculopathy, lumbosacral region; M43.16 Spondylolisthesis, lumbar region